=== PATIENT | male | born 1995 | race Caucasian/White ===

== ENCOUNTER 2021-07-21 21:49 | Emergency (ER) | payer OTHER ==
[~2021-07-21] VITALS: Ht 185.4 cm; Wt 81.6 kg
--- NOTE | 2021-07-21 22:09 | NUR ---
pt bib ra for c/o c/p after doing meth per pt he called 911.
[2021-07-21 22:20] LABS: HEMATOCRIT 41.4 % (36.7-47.1); MEAN CORPUSCULAR HEMOGLOBIN 26.9 uug (23.8-33.4); MEAN CORPUSCULAR VOLUME 80.1 fL (73.0-96.2); PLATELET COUNT (AUTO) 301 K/uL (152-348)
[2021-07-21 22:21] LABS: CARBON DIOXIDE 28 mmol/L (21-32); CHLORIDE 103 mmol/L (98-107); GLUCOSE 96 mg/dL (74-106); POTASSIUM 3.9 mmol/L (3.5-5.1); UREA NITROGEN, BLOOD 21 mg/dL (7-18)
[2021-07-21 22:36] LABS: ETHANOL < 3 MG/DL (0-0)
[2021-07-21] MEDS ORDERED: LORAZEPAM 2 MG/1 ML VIAL IM ONE (22:45)
--- NOTE | 2021-07-21 23:19 | NUR ---
I requested security to check pt's belongings. During this check drugs were found such as crystal meth this is per security as security and Torsten FUENTES was with the pt. The pt was subsequently discharged pt per request. Pt initially wanted to go AMA, but Dr. Silva agreed to send the pt home.
[2021-07-21 23:23] VITALS: BP 151/99
== END 2021-07-21 23:24 | disposition home or self-care (01) ==
LOC: ER 21:52
DX: F15.10 Other stimulant abuse, uncomplicated (principal); R00.0 Tachycardia, unspecified; F17.210 Nicotine dependence, cigarettes, uncomplicated; Z59.02 Unsheltered homelessness; I45.10 Unspecified right bundle-branch block; R03.0 Elevated blood-pressure reading, without diagnosis of hypertension
CPT/HCPCS: 36415; 71045; 84484; 85025; 93005; A4663; G0480

== ENCOUNTER 2021-07-22 02:21 | Emergency (ER) | payer OTHER ==
--- NOTE | 2021-07-22 02:41 | NUR ---
pt left without being triaged.
[2021-07-22] MEDS ORDERED: LORAZEPAM 2 MG/1 ML VIAL ONE (17:33)
== END 2021-07-22 02:41 | disposition left against medical advice (07) ==
LOC: ER 02:30
DX: Z53.21 Procedure and treatment not carried out due to patient leaving prior to being seen by health care provider (principal)
CPT/HCPCS: J2060

== ENCOUNTER 2021-07-22 09:30 | Emergency (ER) | payer OTHER ==
[~2021-07-22] VITALS: Ht 182.9 cm; Wt 78.0 kg
--- NOTE | 2021-07-22 09:45 | NUR ---
Patient ambulatory, alert and oriented x4 complaints of injury on Right arm and lateral abdomen with abrasion noted. Patient states " I was riding my skateboard and i fell this morning". History of hypertension. Patient vitals as follows; BP-150/100 FL-109 RR-20 T- 98F SPO2-98% RA PA-7/10 on right elbow and lateral abdomen.
--- NOTE | 2021-07-22 09:50 | NUR ---
MD at bedside, medical screening exam in process.
[2021-07-22] MEDS ORDERED: LORAZEPAM 2 MG/1 ML VIAL IM ONE ×3 (10:00→17:30)
[2021-07-22] MEDS ORDERED: ACETAMINOPHEN 325 MG TABLET PO ONE ×2 (10:00→23:15)
[2021-07-22] MEDS ORDERED: LORAZEPAM 0.5 MG TABLET PO ONE ×2 (10:00→23:15)
[2021-07-22] MEDS ORDERED: HALOPERIDOL LACTATE 5 MG/1 ML VIAL IM ONE (10:00)
[2021-07-22] MEDS ORDERED: LORAZEPAM 1 MG TABLET ONE (10:01)
[2021-07-22] MEDS ORDERED: ACETAMINOPHEN 325 MG TABLET ONE ×2 (10:03→23:07)
[2021-07-22] MEDS ORDERED: HALOPERIDOL LACTATE 5 MG/1 ML VIAL ONE (10:04)
[2021-07-22] MEDS ORDERED: LORAZEPAM 2 MG/1 ML VIAL ONE ×2 (10:09→16:21)
--- NOTE | 2021-07-22 10:36 | NUR ---
Patient verbalized he is having suicidal thoughts, when asked he stated "I want to kill myself". MD was informed.
--- NOTE | 2021-07-22 10:41 | NUR ---
Patient said "I am hungry", offered food and consumed 100% of food given with no signs of aspiration noted.
--- NOTE | 2021-07-22 10:48 | NUR ---
COVID antigen specimen sent to lab.
--- NOTE | 2021-07-22 11:02 | NUR ---
UA sent to lab.
[2021-07-22 11:10] LABS: *BILIRUBIN,URIN NEGATIVE (NEGATIVE); *BLOOD, URINE NEGATIVE (NEGATIVE); *CLARITY,URINE CLEAR (CLEAR); *COLOR,URINE YELLOW (YELLOW); *KETONES,URINE NEGATIVE (NEGATIVE); *UROBILINOGEN,URINE 0.2 E.U./dl (NORMAL); LEUKOCYTE ESTERASE ,URINE NEGATIVE (NEGATIVE); NITRITE, URINE NEGATIVE (NEGATIVE); UGLUCOSE NEGATIVE (NEGATIVE)
[2021-07-22 11:17] LABS: *AMPHETAMINE, URINE POSITIVE (NEGATIVE); *CANNABINOID, URINE POSITIVE (NEGATIVE); *COCCAINE, URINE NEGATIVE (NEGATIVE); *OPIATE, URINE NEGATIVE (NEGATIVE); *PHENCYCLIDINE SCREEN,URINE NEGATIVE (NEGATIVE)
[2021-07-22 11:24] LABS: HEMATOCRIT 40.9 % (36.7-47.1); MEAN CORPUSCULAR HEMOGLOBIN 27.5 uug (23.8-33.4); MEAN CORPUSCULAR VOLUME 80.5 fL (73.0-96.2); PLATELET COUNT (AUTO) 291 K/uL (152-348)
[2021-07-22 11:30] LABS: CARBON DIOXIDE 26 mmol/L (21-32); CHLORIDE 101 mmol/L (98-107); CREATININE 1.1 mg/dL (0.6-1.3); GLUCOSE 119 mg/dL (74-106); UREA NITROGEN, BLOOD 25 mg/dL (7-18)
[2021-07-22 11:36] LABS: ACETAMINOPHEN < 2.0 ug/mL (10-30); ALANINE AMINOTRANSFERASE 53 U/L (16-63); ALKALINE PHOSPHATASE 195 U/L (50-136); ASPARTATE AMINOTRANSFERASE 21 U/L (15-37); BILIRUBIN,DIRECT 0.1 mg/dL (0.0-0.2); BILIRUBIN,TOTAL 0.5 mg/dL (0.2-1.0); TOTAL PROTEIN, SERUM 8.1 g/dL (6.4-8.2)
--- NOTE | 2021-07-22 11:40 | NUR ---
Called rashid Bolden for patient psych evaluation, said to fax patients record to [facility]. Rashid said to call me back.
[2021-07-22 11:41] LABS: ETHANOL < 3 MG/DL (0-0)
--- NOTE | 2021-07-22 11:50 | NUR ---
Faxed over patients summary report to [facility].
--- NOTE | 2021-07-22 13:00 | NUR ---
Spoke with johnathon coordinator from [facility], re faxed patients summary report for possible transfer.
--- NOTE | 2021-07-22 15:16 | NUR ---
Spoke with john coordinator, said patient will be transferred to [facility] [place] ETA 8-9pm [place]. Patient doesnt have room yet at the [facility], amelie said she will call back.
--- NOTE | 2021-07-22 21:07 | NUR ---
Called Art from [facility] intake who states will give accepting MD and room when cleared by Charge Nurse. He states that no transportation was set up on their end.
--- NOTE | 2021-07-22 22:38 | NUR ---
Rachel from [facility] intake called back with transfer info. Patient will be going to [facility], Accepting MD is Dr Olguin. Call for report is [phone].
--- NOTE | 2021-07-22 22:55 | NUR ---
Called [facility] ambulance to transport patient to [facility]. ETA is 2-3hrs.
--- NOTE | 2021-07-22 23:03 | NUR ---
Gave SBAR report to [place] nurse from [facility].
[2021-07-22] MEDS ORDERED: LORAZEPAM 0.5 MG TABLET ONE (23:08)
--- NOTE | 2021-07-22 23:18 | NUR ---
Called multiple ambulance ([facility], [facility] and [facility]) to transport patient to [facility] but all stated they had no BLS unit available at this time.
--- NOTE | 2021-07-23 00:33 | NUR ---
GAVR SBAR REPORT TO [facility] WHO WILL TRANSFER PATIENT TO [facility].
== END 2021-07-23 00:47 ==
LOC: ER 09:30
DX: S50.311A Abrasion of right elbow, initial encounter (principal); V00.131A Fall from skateboard, initial encounter; Y93.51 Activity, roller skating (inline) and skateboarding; Y92.89 Other specified places as the place of occurrence of the external cause; S62.316A Displaced fracture of base of fifth metacarpal bone, right hand, initial encounter for closed fracture; F41.9 Anxiety disorder, unspecified; F15.10 Other stimulant abuse, uncomplicated; R45.851 Suicidal ideations; Z59.00 Homelessness unspecified; Z20.822 Contact with and (suspected) exposure to COVID-19
CPT/HCPCS: 29125; 36415; 73080; 73130; 80048; 80076; 80299; 80307; 80320; 81003; 85025; 87426; 96372; 99285; J2060 ×3; G0480; J1630

== ENCOUNTER 2021-09-24 00:42 | Emergency (ER) | payer OTHER ==
[~2021-09-24] VITALS: Ht 182.9 cm; Wt 77.1 kg
--- NOTE | 2021-09-24 01:11 | NUR ---
Dr Elizabeth at bedside, MSE in progress.
[2021-09-24] MEDS ORDERED: HYDROCODONE/APAP 5-325MG TABLET PO ONE (01:15)
[2021-09-24] MEDS ORDERED: NITROGLYCERIN OINT 1 GM PACKET TP ONE ×2 (01:15→01:20)
[2021-09-24] MEDS ORDERED: ASPIRIN 81 MG TAB.CHEW PO ONE (01:15)
[2021-09-24] MEDS ORDERED: ASPIRIN 81 MG TAB.CHEW ONE (01:20)
[2021-09-24] MEDS ORDERED: HYDROCODONE/APAP 5-325MG TABLET ONE (01:20)
[2021-09-24] MEDS ORDERED: LORAZEPAM 2 MG/1 ML VIAL ONE (01:26)
[2021-09-24 01:28] LABS: HEMATOCRIT 38.8 % (36.7-47.1); MEAN CORPUSCULAR HEMOGLOBIN 29.8 uug (23.8-33.4); MEAN CORPUSCULAR VOLUME 84.2 fL (73.0-96.2); PLATELET COUNT (AUTO) 207 K/uL (152-348)
[2021-09-24] MEDS ORDERED: LORAZEPAM 2 MG/1 ML VIAL IV ONE (01:30)
[2021-09-24 01:45] LABS: CARBON DIOXIDE 28 mmol/L (21-32); CHLORIDE 106 mmol/L (98-107); CREATININE 0.9 mg/dL (0.6-1.3); GLUCOSE 100 mg/dL (74-106); POTASSIUM 3.5 mmol/L (3.5-5.1); UREA NITROGEN, BLOOD 18 mg/dL (7-18)
[2021-09-24 01:58] LABS: ALANINE AMINOTRANSFERASE 39 U/L (16-63); ALKALINE PHOSPHATASE 91 U/L (50-136); ASPARTATE AMINOTRANSFERASE 22 U/L (15-37); BILIRUBIN,DIRECT 0.1 mg/dL (0.0-0.2); BILIRUBIN,TOTAL 0.4 mg/dL (0.2-1.0); TOTAL PROTEIN, SERUM 7.3 g/dL (6.4-8.2)
[2021-09-24] MEDS ORDERED: LORAZEPAM 2 MG/1 ML VIAL IM ONE (02:30)
--- NOTE | 2021-09-24 04:57 | NUR ---
Patient given written and verbal discharge instructions. Patient verbalizes understanding of instructions. Patient is ambulatory with steady gait. Refuses offer of [facility] placement. Patient given list of available shelters in surrounding area. pt ambulated with steady gait. denies pain. no SOB. no chest pain. AOx4.
[2021-09-24 04:59] VITALS: BP 133/76
== END 2021-09-24 05:00 | disposition home or self-care (01) ==
LOC: ER 00:44
DX: R07.9 Chest pain, unspecified (principal); F19.10 Other psychoactive substance abuse, uncomplicated; Z59.00 Homelessness unspecified; R94.31 Abnormal electrocardiogram [ECG] [EKG]; F17.210 Nicotine dependence, cigarettes, uncomplicated; F15.10 Other stimulant abuse, uncomplicated; I45.10 Unspecified right bundle-branch block; R03.0 Elevated blood-pressure reading, without diagnosis of hypertension
CPT/HCPCS: 36415; 71045; 80048; 80076; 83880; 84484 ×2; 85025; 93005; 96372; 99285; 99406; J2060; A4663

== ENCOUNTER 2021-10-17 19:40 | Emergency (ER) | payer OTHER ==
[~2021-10-17] VITALS: Ht 182.9 cm; Wt 72.6 kg
[2021-10-17] MEDS ORDERED: LORAZEPAM 2 MG/1 ML VIAL ONE (20:28)
[2021-10-17] MEDS ORDERED: LORAZEPAM 2 MG/1 ML VIAL IM ONE (20:30)
--- NOTE | 2021-10-17 21:50 | NUR ---
Patient states "I feel better now."
--- NOTE | 2021-10-17 22:10 | NUR ---
Patient given written and verbal discharge instructions. Patient verbalizes understanding of instructions. Patient is ambulatory with steady gait. Refuses offer of custodial placement. Patient given list of available shelters in surrounding area.
[2021-10-17 22:13] VITALS: BP 119/70
== END 2021-10-17 22:14 | disposition home or self-care (01) ==
LOC: ER 19:42
DX: R07.9 Chest pain, unspecified (principal); F15.10 Other stimulant abuse, uncomplicated; I45.2 Bifascicular block; Z59.00 Homelessness unspecified; F17.210 Nicotine dependence, cigarettes, uncomplicated
CPT/HCPCS: 71045; 93005; 96372; 99284; 99406; J2060; A4663

== ENCOUNTER 2021-12-02 23:41 | Emergency (ER) | payer OTHER ==
[~2021-12-02] VITALS: Ht 185.4 cm; Wt 80.3 kg
--- NOTE | 2021-12-02 23:49 | NUR ---
Dr. Elizabeth at bedside for MSE
[2021-12-03] MEDS ORDERED: LORAZEPAM 0.5 MG TABLET PO ONE
[2021-12-03] MEDS ORDERED: LORA-259 PO (00:04)
--- NOTE | 2021-12-03 00:11 | NUR ---
Patient given written and verbal discharge instructions. Patient verbalizes understanding of instructions. Patient is ambulatory with steady gait. Refuses offer of alf placement. Patient given list of available shelters in surrounding area.
[2021-12-03 00:13] VITALS: BP 155/88
== END 2021-12-03 00:14 | disposition home or self-care (01) ==
LOC: ER 23:46
DX: F41.9 Anxiety disorder, unspecified (principal); F15.10 Other stimulant abuse, uncomplicated; Z59.00 Homelessness unspecified; F17.210 Nicotine dependence, cigarettes, uncomplicated; F20.9 Schizophrenia, unspecified; R03.0 Elevated blood-pressure reading, without diagnosis of hypertension
CPT/HCPCS: A4663

== ENCOUNTER → 2021-12-02 | Emergency (ER) | payer OTHER ==
[~2021-12-02] MED LIST: LORA-259 PO; LORAZEPAM 1 MG TABLET ONE
== END | disposition left against medical advice (07) ==
LOC: ER 23:43
DX: Z53.21 Procedure and treatment not carried out due to patient leaving prior to being seen by health care provider (principal)

== ENCOUNTER 2022-01-15 16:33 | Emergency (ER) | payer OTHER ==
[~2022-01-15] VITALS: Ht 182.9 cm; Wt 78.9 kg
[~2022-01-15 16:33] MED LIST changes: -LORAZEPAM 1 MG TABLET ONE
[2022-01-15] MEDS ORDERED: ASPIRIN 325 MG TABLET PO ONE (17:00)
[2022-01-15] MEDS ORDERED: TRAZ-182 PO (17:07)
[2022-01-15] MEDS ORDERED: DOCU100C36 PO (17:07)
[2022-01-15] MEDS ORDERED: QUET400T PO (17:07)
[2022-01-15] MEDS ORDERED: CHLO50TA24 PO (17:07)
[2022-01-15 17:45] LABS: HEMATOCRIT 43.1 % (36.7-47.1); MEAN CORPUSCULAR HEMOGLOBIN 28.6 uug (23.8-33.4); MEAN CORPUSCULAR VOLUME 85.5 fL (73.0-96.2); PLATELET COUNT (AUTO) 197 K/uL (152-348)
[2022-01-15] MEDS ORDERED: KETOROLAC TROMETHAMINE 15 MG INJ IM ONE (17:45)
[2022-01-15] MEDS ORDERED: KETOROLAC TROMETHAMINE 15 MG INJ ONE (17:48)
[2022-01-15] MEDS ORDERED: ASPIRIN 325 MG TABLET ONE (17:48)
[2022-01-15 17:49] LABS: POTASSIUM 4.2 mmol/L (3.5-5.1)
[2022-01-15 17:54] LABS: BILIRUBIN,TOTAL 0.3 mg/dL (0.2-1.0); TOTAL PROTEIN, SERUM 7.7 g/dL (6.4-8.2)
--- NOTE | 2022-01-15 18:32 | NUR ---
PT WAS EVALUATED BY DR WALTERS. PT WAS D/C'd TO HOME. D/C INSTRUCTIONS GIVEN TO THE PT BY DR WALTERS.
[2022-01-15 18:43] VITALS: BP 133/78
[2022-01-16] MEDS ORDERED: QUET400T PO (22:46)
[2022-01-16] MEDS ORDERED: CHLO50TA13 PO (22:46)
[2022-01-16] MEDS ORDERED: TRAZ-182 PO (22:46)
== END 2022-01-15 18:44 | disposition home or self-care (01) ==
LOC: ER 16:37
DX: R07.89 Other chest pain (principal); F19.10 Other psychoactive substance abuse, uncomplicated; I45.2 Bifascicular block; F20.9 Schizophrenia, unspecified
CPT/HCPCS: 99285; 71045; 80053; 85025; 84484; 36415; 93005; 96372; J1885; A4663

== ENCOUNTER 2022-01-16 22:17 | Emergency (ER) | payer OTHER ==
[~2022-01-16] VITALS: Ht 182.9 cm; Wt 77.1 kg
[~2022-01-16 22:17] MED LIST changes: +CHLO50TA24 PO; +DOCU100C36 PO; +QUET400T PO; +TRAZ-182 PO
[2022-01-16] MEDS ORDERED: TRAZ-182 PO (22:46)
[2022-01-16] MEDS ORDERED: QUET400T PO (22:46)
[2022-01-16] MEDS ORDERED: CHLO50TA13 PO (22:46)
--- NOTE | 2022-01-16 22:55 | NUR ---
Patient given written and verbal discharge instructions. Patient verbalizes understanding of instructions. Patient is ambulatory with steady gait. Refuses offer of longterm placement. Patient given list of available shelters in surrounding area.
== END 2022-01-16 22:55 | disposition home or self-care (01) ==
LOC: ER 22:18
DX: F15.10 Other stimulant abuse, uncomplicated (principal); F19.10 Other psychoactive substance abuse, uncomplicated; Z59.00 Homelessness unspecified; F20.9 Schizophrenia, unspecified; Z79.899 Other long term (current) drug therapy
CPT/HCPCS: A4663